=== PATIENT | male | born 1965 | race Asian ===

== ENCOUNTER → 2016-06-18 | Outpatient (CLI) | payer OTHER ==
[~2016-06-18] MED LIST: NOCURR
== END | disposition home or self-care (01) ==
LOC: EMPHLTH 08:17
PROVIDERS: ATTEND Internal Medicine
DX: R76.11 Nonspecific reaction to tuberculin skin test without active tuberculosis (principal)

== ENCOUNTER 2017-02-17 23:44 | Emergency (ER) | payer OTHER ==
[~2017-02-17] VITALS: Ht 170.2 cm; Wt 93.0 kg
[2017-02-17] MEDS ORDERED: HYDR25TA PO (23:51)
[2017-02-17] MEDS ORDERED: AMLO-512 PO (23:51)
[2017-02-17] MEDS ORDERED: OMEG1CAP83 PO (23:51)
[2017-02-17] MEDS ORDERED: MULT1CAP32 PO (23:51)
[2017-02-17] MEDS ORDERED: KDUR20 PO (23:51)
[2017-02-18 00:55] VITALS: BP 128/81
== END 2017-02-18 00:57 | disposition home or self-care (01) ==
LOC: EMS 23:45
DX: S09.90XA Unspecified injury of head, initial encounter (principal); M62.838 Other muscle spasm; I10 Essential (primary) hypertension; F17.210 Nicotine dependence, cigarettes, uncomplicated; W01.198A Fall on same level from slipping, tripping and stumbling with subsequent striking against other object, initial encounter; Y93.89 Activity, other specified; Y92.89 Other specified places as the place of occurrence of the external cause; Y99.8 Other external cause status
CPT/HCPCS: 70450; 72125; 99284